=== PATIENT | male | born 1985 | race American Indian/Alaskan Native ===

== ENCOUNTER 2019-05-02 13:23 | Emergency (ER) | payer SELFPAY ==
--- NOTE | 2019-05-02 13:38 | Event Note ---
ED Screening Note Date of service: 05/02/19 Time: 13:34 ED Screening Note: This is a 33 y.o. M. that presents to the ER with chest pain, congestion, cough, and body aches x 3 weeks. PMH of HIV, HTN Taking mucinex and nyquil This initial assessment/diagnostic orders/clinical plan/treatment(s) is/are subject to change based on patients health status, clinical progression and re- assessment by fellow clinical providers in the ED. Further treatment and workup at subsequent clinical providers discretion. Patient/guardian urged not to elope from the ED as their condition may be serious if not clinically assessed and managed. Initial orders include: CXR
--- NOTE | 2019-05-02 14:14 | XRay Report ---
CHEST 2 VIEWS INDICATION / CLINICAL INFORMATION: MAIN: chest pain and cough FOR 3 WEEKS. COMPARISON: None available. FINDINGS: SUPPORT DEVICES: None. HEART / MEDIASTINUM: No significant abnormality. LUNGS / PLEURA: No significant pulmonary or pleural abnormality. No pneumothorax. ADDITIONAL FINDINGS: No significant additional findings. IMPRESSION: 1. No significant pulmonary abnormality. Signer Name: Melanie Cruz MD Signed: 05/02/2019 2:10 PM Workstation Name: [id number]
[2019-05-02] MEDS ORDERED: IBUPROFEN 800 MG TAB PO ONE (15:50)
[2019-05-02] MEDS ORDERED: SODIUM CHLORIDE 0.9% 1000 ML 1,000 ML IV ONE (15:50)
[2019-05-02] MEDS ORDERED: MORPHINE 2 MG/1 ML INJ IV ONE (16:03)
[2019-05-02 16:49] LABS: Basophils # (Auto) 0.1 K/mm3 (0.0-0.1); Basophils % (Auto) 0.7 % (0.0-1.8); Eosinophils # (Auto) 0.2 K/mm3 (0.0-0.4); Eosinophils % (Auto) 2.7 % (0.0-4.3); Hematocrit 43.4 % (35.5-45.6); Hemoglobin 14.7 gm/dl (11.8-15.2); Lymphocytes # (Auto) 2.3 K/mm3 (1.2-5.4); Lymphocytes % (Auto) 28.4 % (13.4-35.0); Mean Corpuscular HGB Conc 34 % (32-34); Mean Corpuscular Volume 96 fl (84-94); Monocytes # (Auto) 0.7 K/mm3 (0.0-0.8); Monocytes % (Auto) 8.8 % (0.0-7.3); Platelet Count 343 K/mm3 (140-440); Red Blood Count 4.51 M/mm3 (3.65-5.03); Red Cell Distribution Width 13.4 % (13.2-15.2)
--- NOTE | 2019-05-02 17:11 | Emergency Department Report ---
<NETTIE COLINDRES M - Last Filed: 05/02/19 17:34> - General Chief Complaint: Upper Respiratory Infection Stated Complaint: CHEST PAIN/CONJESTED/BODY PAIN Time Seen by Provider: 05/02/19 13:34 - Related Data Allergies Allergy/AdvReac Type Severity Reaction Status Date / Time No Known Allergies Allergy Verified 05/02/19 13:26 ED Course - Reevaluation(s) Reevaluation #2: I have seen and examined this patient. He told me that he is compliant with his HIV medicine. He states it starts with a T but he does not otherwise know the name. He has this with him and the nurse will collect. He states he's been having chills for a week and a half. He denied fever but has been taking his temperature. He denied diarrhea. He states he's been coughing occasionally. He states he's vomited but has had no diarrhea. He denies any sores or lesions. He has not had any rectal problem. He denies abdominal pain. He is not short of breath. He denied headache or neck stiffness. He states he's been in this area for a month and a half. Physical exam Patient is awake and alert and fully coherent HEENT soft palate is a bit erythematous but there is no yeast. Neck no tenderness no meningismus and no lymphadenopathy is notable Cardiovascular tachycardic without murmur or rub Respiratory breath sounds clear and equal GI abdomen soft nontender Musculoskeletal exam no active joints Skin no lesions evident Neurological exam patient awake alert and oriented history grandmother states 12 are intact. There is no motor sensory deficit Diagnostic impression Sepsis Relative hypoglycemia HIV positive Plan Discussed with Dr. Barcenas. He will see and admit. Fluids, cefepime and vancomycin have been ordered. Additional workup is pending such as urinalysis, urine culture and blood cultures. 05/02/19 17:34 ED Medical Decision Making - Lab Data Result diagrams: 05/02/19 16:06 05/02/19 16:06 Laboratory Results - last 24 hr 05/02/19 05/02/19 05/02/19 16:00 16:06 16:06 WBC 8.2 RBC 4.51 Hgb 14.7 Hct 43.4 MCV 96 H MCH 33 H MCHC 34 RDW 13.4 Plt Count 343 Lymph % (Auto) 28.4 Terry % (Auto) 8.8 H Eos % (Auto) 2.7 Baso % (Auto) 0.7 Lymph # 2.3 Terry # 0.7 Eos # 0.2 Baso # 0.1 Seg Neutrophils % 59.4 Seg Neutrophils # 4.9 Sodium 140 Potassium 3.3 L Chloride 102.1 Carbon Dioxide 16 L Anion Gap 25 BUN 18 Creatinine 0.9 Estimated GFR > 60 BUN/Creatinine Ratio 20 Glucose 63 L Lactic Acid Calcium 8.1 L Magnesium CK-MB (CK-2) NT-Pro-B Natriuret Pep Influenza A (Rapid) Negative Influenza B (Rapid) Negative 05/02/19 05/02/19 05/02/19 16:06 Unknown Unknown WBC RBC Hgb Hct MCV MCH MCHC RDW Plt Count Lymph % (Auto) Terry % (Auto) Eos % (Auto) Baso % (Auto) Lymph # Terry # Eos # Baso # Seg Neutrophils % Seg Neutrophils # Sodium Potassium Chloride Carbon Dioxide Anion Gap BUN Creatinine Estimated GFR BUN/Creatinine Ratio Glucose Lactic Acid 3.90 H* Calcium Magnesium 2.00 CK-MB (CK-2) 4.2 H NT-Pro-B Natriuret Pep Influenza A (Rapid) Influenza B (Rapid) 05/02/19 Unknown WBC RBC Hgb Hct MCV MCH MCHC RDW Plt Count Lymph % (Auto) Terry % (Auto) Eos % (Auto) Baso % (Auto) Lymph # Terry # Eos # Baso # Seg Neutrophils % Seg Neutrophils # Sodium Potassium Chloride Carbon Dioxide Anion Gap BUN Creatinine Estimated GFR BUN/Creatinine Ratio Glucose Lactic Acid Calcium Magnesium CK-MB (CK-2) NT-Pro-B Natriuret Pep 18.91 Influenza A (Rapid) Influenza B (Rapid) ED Disposition Clinical Impression: HIV positive Sepsis Qualifiers: Sepsis type: sepsis due to unspecified organism Sepsis acute organ dysfunction status: without acute organ dysfunction Qualified Code(s): A41.9 - Sepsis, unspecified organism Disposition: DC-09 OP ADMIT IP TO THIS HOSP Is pt being admited?: Yes Does the pt Need Aspirin: Yes Condition: Stable <ALECIA CARNEY - Last Filed: 05/02/19 18:44> - General Source: patient Mode of arrival: Ambulatory Limitations: No Limitations - History of Present Illness Initial Comments: This is a 33-year-old male nontoxic, well nourished in appearance, no acute sig ns of distress presents to the ED with c/o of productive cough, fever, chills, body aches, rhinorrhea, nasal congestion x2 weeks. Patient describes productive cough as yellow mucus production. Patient denies any sick contact. Stated has chest pains during coughing. Patient denies any recent travels, long car, recent hospital stays. Patient denies any calf pain or calf tenderness. Patient denies any short of breath, nausea, vomiting, hemoptysis, numbness, tingling, headache or stiff neck. Past medical history includes HIV. Patient denies any drug allergies. MD Complaint: fever, cough, rhinorrhea, nasal congestion -: week(s) (2) Severity: mild Severity scale (0 -10): 8 Quality: aching Consistency: constant Improves With: nothing Worsens With: nothing Associated Symptoms: fever, chills, rhinorrhea, nasal congestion, cough. denies: myalgias, diaphoresis, headache, sore throat, stiff neck, chest pain, shortness of breath, abdominal pain, nausea, vomiting, diarrhea, dysuria, rash, confusion, right sweats, weight loss, epistaxis, hoarseness, ear pain ED Review of Systems ROS: Stated complaint: CHEST PAIN/CONJESTED/BODY PAIN Other details as noted in HPI Constitutional: chills, fever Eyes: denies: eye pain, eye discharge, vision change ENT: congestion. denies: ear pain, throat pain Respiratory: cough. denies: shortness of breath, wheezing Cardiovascular: denies: chest pain, palpitations Endocrine: no symptoms reported Gastrointestinal: denies: abdominal pain, nausea, diarrhea Genitourinary: denies: urgency, dysuria Musculoskeletal: denies: back pain, joint swelling, arthralgia Skin: denies: rash, lesions Neurological: denies: headache, weakness, paresthesias Psychiatric: denies: anxiety, depression Hematological/Lymphatic: denies: easy bleeding, easy bruising ED Past Medical Hx - Past Medical History Previous Medical History?: Yes Hx Hypertension: Yes Hx HIV: Yes - Surgical History Past Surgical History?: No - Social History Smoking Status: Never Smoker Substance Use Type: None ED Physical Exam - General Limitations: No Limitations General appearance: alert, in no apparent distress - Head Head exam: Present: atraumatic, normocephalic - Neck Neck exam: Present: normal inspection, full ROM. Absent: tenderness, meningismus, lymphadenopathy - Respiratory Respiratory exam: Present: normal lung sounds bilaterally, chest wall tenderness. Absent: respiratory distress, wheezes, rales, rhonchi, stridor, accessory muscle use, decreased breath sounds, prolonged expiratory - Cardiovascular Cardiovascular Exam: Present: regular rate, normal rhythm, tachycardia, normal heart sounds. Absent: irregular rhythm, systolic murmur, diastolic murmur, rubs, gallop - Extremities Exam Extremities exam: Present: full ROM - Back Exam Back exam: Present: normal inspection, full ROM. Absent: tenderness, CVA tenderness (R), CVA tenderness (L), muscle spasm, paraspinal tenderness, vertebral tenderness, rash noted - Neurological Exam Neurological exam: Present: alert, oriented X3, normal gait - Psychiatric Psychiatric exam: Present: normal affect, normal mood - Skin Skin exam: Present: warm, dry, intact, normal color. Absent: rash ED Course Vital Signs 05/02/19 05/02/19 13:35 17:52 Temperature 97.6 F Pulse Rate 138 H 106 H Respiratory 18 18 Rate Blood Pressure 161/105 Blood Pressure 141/93 [Right] O2 Sat by Pulse 100 99 Oximetry - Reevaluation(s) Reevaluation #1: 05/02/19 17:17 Patient is speaking in full sentences with no signs of distress noted. - Consultations Consultation #1: 05/02/19 17:18 Patient has been consulted with Brooke White about patient history, physical exam, and labs and examined and seen patient and agrees to ED plan of care with admission. ED Medical Decision Making - Lab Data Result diagrams: 05/02/19 16:06 05/02/19 16:06 - Medical Decision Making This is a 33-year-old male that presents with sepsis. Patient is currently sta ble and was examined by me and Dr. Colindres. Labs obtained. Chest x-ray obtained. Negative once as well. Patient started on antibiotics. Received fluids in the ED. Patient admitted for further evaluation and treatment with Dr. Barcenas. At time of admission, the patient does not seem toxic or ill in appearance. No acute signs of distress noted. Patient agrees to admission teatment plan of care. No further questions noted by the patient. Critical care attestation.: If time is entered above; I have spent that time in minutes in the direct care of this critically ill patient, excluding procedure time.
[2019-05-02] MEDS ORDERED: SODIUM CHLORIDE 0.9% 1000 ML IV SOLN IV ONE (17:12)
[2019-05-02] MEDS ORDERED: CEFEPIME/NS 1 GM/100 ML 1 GM/100 ML BAG IV ONE (17:13)
[2019-05-02 17:26] LABS: BUN/Creatinine Ratio 20; Blood Urea Nitrogen 18 mg/dL (9-20); Calcium 8.1 mg/dL (8.4-10.2); Hemolysis Index 6
[2019-05-02 17:31] LABS: Creatine Kinase MB 4.2 ng/mL (0.0-4.0)
[2019-05-02 17:33] LABS: Alanine Aminotransferase 5 units/L (7-56)
[2019-05-02 17:37] LABS: Albumin < 0.2 g/dL (3.9-5); Bilirubin,Direct < 0.2 mg/dL (0-0.2)
[2019-05-02] MEDS ORDERED: POTASSIUM CHLORIDE ER 20 MEQ TAB PO ONE (17:41)
[2019-05-02] MEDS ORDERED: SODIUM CHLORIDE 0.9% 1000 ML 2,000 ML IV ONE (18:00)
[2019-05-02] MEDS ORDERED: VANCOMYCIN PHARMACY TO DOSE IV SCH (18:00)
[2019-05-02] MEDS ORDERED: VANCOMYCIN 1,500 MG in SODIUM CHLORIDE 0.9% 500 ML 500 ML IV ONE (18:00)
[2019-05-02] MEDS ORDERED: SODIUM BICARB 8.4% 50 MEQ/50 ML SYRINGE IV ONE (18:00)
[2019-05-02 18:45] LABS: INR 1.01 (0.87-1.13)
[2019-05-02 18:46] LABS: Partial Thromboplastin Time 37.7 Sec. (24.2-36.6)
--- NOTE | 2019-05-02 18:47 | Event Note ---
33 YO Male with HIV presents to ED for evaluation of nasal congestion and subjective fever. Pt seen and evaluated in ED. Pt treated with empiric antibiotic therapy. Pt underwent laboratory exam and full physical exam without significant findings. Pt treated with supportive care. Pt medically optimized and back to usual state of health. Pt discharged home and instructed to f/u pcp 3-5 days, and ID f/u as previously scheduled. Pt instructed to continue prehospital medication. Pt does not meet admission criteria at this time. - General Limitations: No Limitations General appearance: alert, in no apparent distress - Head Head exam: Present: atraumatic, normocephalic - Neck Neck exam: Present: normal inspection, full ROM. Absent: tenderness, meningismus, lymphadenopathy - Respiratory Respiratory exam: Present: normal lung sounds bilaterally, chest wall tenderness. Absent: respiratory distress, wheezes, rales, rhonchi, stridor, accessory muscle use, decreased breath sounds, prolonged expiratory - Cardiovascular Cardiovascular Exam: Present: regular rate, normal rhythm, tachycardia, normal heart sounds. Absent: irregular rhythm, systolic murmur, diastolic murmur, rubs, gallop - Extremities Exam Extremities exam: Present: full ROM - Back Exam Back exam: Present: normal inspection, full ROM. Absent: tenderness, CVA tenderness (R), CVA tenderness (L), muscle spasm, paraspinal tenderness, vertebral tenderness, rash noted - Neurological Exam Neurological exam: Present: alert, oriented X3, normal gait - Psychiatric Psychiatric exam: Present: normal affect, normal mood - Skin Skin exam: Present: warm, dry, intact, normal color. Absent: rash
--- NOTE | 2019-05-02 19:48 | Cat Scan Report ---
CT HEAD WITHOUT CONTRAST INDICATION / CLINICAL INFORMATION: weakness. TECHNIQUE: All CT scans at this location are performed using CT dose reduction for ALARA by means of automated e xposure control. COMPARISON: None available. FINDINGS: HEMORRHAGE: None. EXTRA-AXIAL SPACES: Normal in size and morphology for the patient's age. VENTRICULAR SYSTEM: Normal in size and morphology for the patient's age. CEREBRAL PARENCHYMA: No significant abnormality. No acute territorial infarct. MIDLINE SHIFT OR HERNIATION: None. CEREBELLUM / BRAINSTEM: No significant abnormality. ORBITS: Normal as visualized. SOFT TISSUES of HEAD: No significant abnormality. CALVARIUM: No significant abnormality. PARANASAL SINUSES / MASTOID AIR CELLS: Normal as visualized. ADDITIONAL FINDINGS: None. IMPRESSION: 1. No acute intracranial abnormality. Signer Name: Carmita Contreras MD Signed: 05/02/2019 7:44 PM Workstation Name: [id number]
[2019-05-02 22:52] LABS: Bacteria,Urine 1+ /HPF (Negative); Bilirubin,Urine NEG (Negative); Blood,Urine NEG (Negative); Color,Urine Yellow (Yellow); Mucus,Urine 3+ /HPF
[2019-05-02 23:48] VITALS: BP 150/93
[2019-05-03] MEDS ORDERED: VANCOMYCIN/NS 1 GM/250 ML 1 GM/250 ML BAG IV SCH (02:00)
== END 2019-05-02 22:00 | disposition home or self-care (01) ==
LOC: ED 13:23
DX: A41.9 Sepsis, unspecified organism (principal); B20 Human immunodeficiency virus [HIV] disease; I10 Essential (primary) hypertension
CPT/HCPCS: 36415; 70450; 71046; 80048; 80076; 81001; 82140; 82550; 82553; 83735; 83880; 85025; 85379; 85610; 85730; 87086; 87400; 93005; 93010; 96365; 96366; 96367; 96375; 99285; J0692; J2270; J3370; J7030; J7040